=== PATIENT | female | born 1985 ===

== ENCOUNTER → 2017-09-29 13:57 | Outpatient (CLI) | payer OTHER | END | disposition home or self-care (01) | LOC: LAB 13:57 | DX: O09.92 Supervision of high risk pregnancy, unspecified, second trimester (principal) ==

== ENCOUNTER 2017-10-22 12:48 | Outpatient (CLI) | payer OTHER | END 2017-10-22 13:12 | disposition home or self-care (01) | LOC: LAB 12:48 | DX: O09.90 Supervision of high risk pregnancy, unspecified, unspecified trimester (principal); A92.5 Zika virus disease ==

== ENCOUNTER 2017-12-15 11:16 | Outpatient (CLI) | payer OTHER | END 2017-12-15 14:48 | disposition home or self-care (01) | LOC: LAB 11:16 | DX: O09.92 Supervision of high risk pregnancy, unspecified, second trimester (principal) ==

== ENCOUNTER 2017-12-29 10:40 | Outpatient (CLI) | payer OTHER | END 2017-12-29 10:54 | disposition home or self-care (01) | LOC: LAB 10:40 | DX: O09.93 Supervision of high risk pregnancy, unspecified, third trimester (principal) ==

== ENCOUNTER 2018-01-26 13:50 | Outpatient (CLI) | payer OTHER | END 2018-01-26 13:57 | disposition home or self-care (01) | LOC: LAB 13:50 | DX: A92.8 Other specified mosquito-borne viral fevers (principal) ==

== ENCOUNTER 2018-02-16 14:00 | Inpatient (IN) | payer OTHER ==
[~2018-02-16] VITALS: Ht 165.1 cm; Wt 3.2 kg
[2018-02-21] MEDS ORDERED: FOLIC ACID1 MG PO (07:42)
== END 2018-02-24 13:27 | disposition home or self-care (01) | DRG 766 ==
LOC: O/R 02-21 06:20 → OB/GYN 02-21 14:00
PROVIDERS: Specialist
PROC: 10907ZC Drainage of Amniotic Fluid, Therapeutic from Products of Conception, Via Natural or Artificial Opening (ICD-10-PCS; 2018-02-21)
PROC: 4A033R1 Measurement of Arterial Saturation, Peripheral, Percutaneous Approach (ICD-10-PCS; 2018-02-21)
PROC: 4A1HXCZ Monitoring of Products of Conception, Cardiac Rate, External Approach (ICD-10-PCS; 2018-02-21)
PROC: 10D00Z1 Extraction of Products of Conception, Low, Open Approach (ICD-10-PCS; principal; 2018-02-21 20:00)
DX: O64.1XX0 Obstructed labor due to breech presentation, not applicable or unspecified (principal); Z3A.39 39 weeks gestation of pregnancy; Z37.0 Single live birth

== ENCOUNTER 2018-08-23 16:40 | Outpatient (CLI) | payer OTHER ==
[~2018-08-23 16:40] MED LIST: FOLIC ACID1 MG PO
== END 2018-08-23 16:48 | disposition home or self-care (01) ==
LOC: RAD 16:40
DX: M43.16 Spondylolisthesis, lumbar region (principal)

== ENCOUNTER 2018-12-02 10:58 | Outpatient (CLI) | payer OTHER | END 2018-12-02 11:05 | disposition home or self-care (01) | LOC: RAD 10:58 | DX: M25.552 Pain in left hip (principal); M25.551 Pain in right hip ==

== ENCOUNTER → 2020-07-02 12:30 | Outpatient (CLI) | payer OTHER | END | disposition home or self-care (01) | LOC: LAB 12:30 | PROVIDERS: ATTEND General Practice | DX: R09.81 Nasal congestion (principal); D68.8 Other specified coagulation defects; Z00.8 Encounter for other general examination; R04.0 Epistaxis ==

== ENCOUNTER → 2022-11-03 13:49 | Outpatient (CLI) | payer OTHER | END | disposition home or self-care (01) | LOC: LAB 13:49 | DX: N39.0 Urinary tract infection, site not specified (principal); D64.9 Anemia, unspecified; E08.9 Diabetes mellitus due to underlying condition without complications; E78.5 Hyperlipidemia, unspecified; E55.9 Vitamin D deficiency, unspecified; E11.9 Type 2 diabetes mellitus without complications ==

== ENCOUNTER 2022-11-10 08:56 | Outpatient (CLI) | payer OTHER | END 2022-11-10 09:08 | disposition home or self-care (01) | LOC: SONOGRAMA 08:56 | DX: R16.0 Hepatomegaly, not elsewhere classified (principal); R10.84 Generalized abdominal pain ==